=== PATIENT | male | born 1965 | race Caucasian/White ===

== ENCOUNTER → 2017-12-10 07:59 | Outpatient (CLI) | payer MEDICARE, MEDICAID, SELFPAY ==
--- NOTE | 2017-12-10 08:03 | CT_ITS ---
STUDY: CT ABDOMEN WITH CONTRAST REASON FOR EXAM: Male, 52 years old. Esophageal cancer follow-up. Patient had surgery on the esophagus and also had chemotherapy and radiation therapy RADIATION DOSAGE (If Supplied By Facility): CTDIvol = ( 11.71 ) mGy, DLP = ( 602.26 ) mGycm TECHNIQUE: Transaxial images were obtained post I.V. administration of 100 ml of Isovue 300 contrast, and with oral contrast. Sagittal and coronal images were reconstructed. Individualized dose optimization techniques were used for this CT. COMPARISON: CT scan abdomen and pelvis 05/18/2017. CT PET scan 06/04/2017. FINDINGS: There are mild emphysematous changes in the visualized lower lung doherty. There is a calcified pulmonary granuloma in the right lower lobe. The visualized portions of the heart are within normal limits. Normal liver. Normal gallbladder and extrahepatic biliary system. Normal spleen. There is a complex cystic structure within the inferior head of the pancreas, measuring approximately 2.4 x 2.7 x 3.4 cm. There is no significant change in overall size, however, on the previous CT scan, this lesion had a thick solid outer rim and a more well-defined cystic center, worse on current exam, the lesion is more diffusely and heterogeneously cystic. No corresponding glucose avidity was demonstrated on previous PET scan, which somewhat decreases likelihood that this represents a viable neoplasm. Finding may represent a pancreatic pseudocyst. There is redemonstration of a 7 mm cystic lesion in the tail the pancreas appears smaller than on the study. The remainder the pancreas appears mildly atrophic but otherwise normal, with no demonstrated ductal dilatation or surrounding fat infiltration to suggest acute pancreatitis. Normal bilateral adrenal glands. Normal right kidney. Normal left kidney. Assessment of the stomach is limited by nondistention. Normal small intestine. Normal colon. There is non-visualization of the appendix. There is mild atherosclerotic calcification of the abdominal aorta, without a demonstrated aneurysm. Normal inferior vena cava. Normal retroperitoneum. Normal abdominal wall. There are multilevel degenerative changes of the visualized lumbar spine. CT/Abdomen WITH IV Contrast IMPRESSION: Complex cystic lesion arising in the inferior head of the pancreas appears more diffusely and heterogeneously cystic entity on previous study. Given lack of activity on PET scan, this probably represents a pseudocyst. Small cystic lesion in the tail the pancreas is smaller than was on the previous study. No other evidence for masses or metastatic lesions. Atherosclerosis. Electronically Signed: Anderson Lucas MD at 2:14 EDT , Service support ,
--- NOTE | 2017-12-10 08:03 | CT_ITS ---
STUDY: CT CHEST WITH CONTRAST REASON FOR EXAM: Male, 52 years old. Follow-up esophageal cancer. Patient's had esophageal surgery, chemotherapy, and radiation therapy. RADIATION DOSAGE (If Supplied By Facility): CTDIvol = ( 11.71 ) mGy, DLP = ( 602.26 ) mGycm TECHNIQUE: Transaxial imaging was performed following intravenous administration of 100 ml of Isovue 300 contrast material. Individualized dose optimization techniques were used for this CT. COMPARISON: CT PET scan 06/04/2017. CT chest 05/18/2017, 05/20/2016, and 04/18/2016. FINDINGS: There is mild diffuse mural thickening of the distal thoracic esophagus which is not significantly different from the previous studies. There are prominent emphysematous changes in the lungs, greatest in the lung apices. As seen on series 2, axial images 22-24, there is a 9 mm spiculated pulmonary nodule in the right lung apex. This has not increased in size since the 2016 exam and it does not demonstrate glucose avidity on PET scan, which increased likely this is benign finding. There is a calcified granuloma in the right lower lobe. There is no demonstrated pleural abnormality. Normal heart and pericardium. There are multiple small lymph nodes within the mediastinum, which are normal in size and morphology.. Normal hilar regions. Normal enhanced pulmonary arteries. Normal aorta arch and descending thoracic aorta. There are multi-level degenerative changes of the thoracic spine. There is no demonstrated abnormality of the visualized upper abdomen. CT/Chest WITH Contrast IMPRESSION: Emphysematous and fibrotic changes in the lungs. 9 mm right apical lung nodule is stable in size and appearance. Mild mural thickening of the distal thoracic esophagus is stable in appearance. No evidence for acute pathology. No evidence for new masses or lymphadenopathy. Electronically Signed: Anderson Lucas MD at 2:28 EDT , Service support ,
[2017-12-10 08:21] LABS: CREATININE FINGERSTICK 0.8 mg/dL (0.70-1.30); EGFR FINGERSTICK > 60.0000 mL/min (>60)
== END ==
PROVIDERS: Family Provider Family Medicine; PCP Family Medicine; Visit Provider Internal Medicine Medical Oncology
DX: C15.5 Malignant neoplasm of lower third of esophagus (principal)
CPT/HCPCS: 71260; 74160; Q9967

== ENCOUNTER → 2018-09-16 15:03 | Outpatient (CLI) | payer MEDICARE, SELFPAY ==
[2018-09-16 18:18] LABS: Vitamin B12 778 pg/mL (211-911)
[2018-09-16 18:20] LABS: Alcohol, Blood (Medical)-Serum < 3.0 mg/dL
[2018-09-16 18:23] LABS: ALB/GLOB Ratio 0.8 RATIO (0.9-2.4); AST(SGOT) 13 U/L (15-37); Alanine Aminotransfer ALT/SGPT 14 U/L (16-61); Albumin, Serum 3.4 g/dL (3.2-5.0); Alkaline Phosphatase 102 U/L (45-117); Anion Gap 7 (5-15); BUN 6 mg/dL (7-18); BUN/Creat Ratio 8.3 RATIO (10-20); Calcium,Total 8.7 mg/dL (8.5-10.1); Chloride 100 mmol/L (98-107); Creatinine, Serum 0.72 mg/dL (0.70-1.30); EST Glomerular Filtration Rate 120 mL/min (>60); Est Glom Filt Rate - Afr Amer 146 mL/min (>60); Glucose 73 mg/dL (74-106); Iron 64 ug/dL (65-175); Potassium 3.1 mmol/L (3.5-5.1); Prealbumin 16.7 mg/dL (20.0-40.0); Protein, Total 7.4 g/dL (6.4-8.2); Sodium Level 135 mmol/L (136-145); Thyroid Stim Hormone (TSH) 1.52 uIU/mL (0.358-3.74)
[2018-09-18 15:58] LABS: Carbohydrate Ag 19-9 2261 12 U/mL (0-35)
== END ==
PROVIDERS: Family Provider Family Medicine; PCP Family Medicine; Visit Provider Family Medicine
DX: R62.7 Adult failure to thrive (principal); K86.1 Other chronic pancreatitis; R63.4 Abnormal weight loss; F10.20 Alcohol dependence, uncomplicated; E16.2 Hypoglycemia, unspecified; Z51.81 Encounter for therapeutic drug level monitoring; Z85.01 Personal history of malignant neoplasm of esophagus
CPT/HCPCS: 36415; 80053; 80320; 82607; 82746; 83036; 83540; 84134; 84443; 86301; G0480

== ENCOUNTER → 2019-03-13 14:25 | Outpatient (CLI) | payer MEDICARE, SELFPAY ==
--- NOTE | 2019-03-13 14:27 | CT_ITS ---
STUDY: CT ABDOMEN WITH CONTRAST REASON FOR EXAM: Male, 53 years old. Patient has a history of esophageal cancer and pancreatitis. RADIATION DOSAGE (If Supplied By Facility): CTDIvol = ( 16.46 ) mGy, DLP = ( 350.30 ) mGycm TECHNIQUE: Transaxial images were obtained post I.V. administration of IV/Oral Isovue 370 100, and with oral contrast. Sagittal and coronal images were reconstructed. Individualized dose optimization techniques were used for this CT. COMPARISON: Comparison is made with prior study dated December 10, 2017. FINDINGS: Minimal degree of dependent bibasilar atelectasis. The visualized portions of the heart are within normal limits. There is decreased attenuation of the liver consistent with steatosis. Normal gallbladder and extrahepatic biliary system. Normal spleen. There is diffuse atrophy of the body and tail portions of the pancreas. The head of the pancreas is enlarged. This measures 3.5 cm x 3.6 cm cyst. Within it, there is a 1.8 cm x 2.6 cm cyst. Normal bilateral adrenal glands. Normal right kidney. Normal left kidney. There is a small hiatal hernia. Normal small intestine. Normal colon. The appendix is visualized and appears normal. There is diffuse atherosclerotic calcification of the abdominal aorta, without a demonstrated aneurysm. Normal inferior vena cava. Normal retroperitoneum. Distended urinary bladder. Normal abdominal wall. There are diffuse degenerative changes of the visualized lumbar spine. CT/Abdomen WITH IV Contrast IMPRESSION: Enlargement of the head of the pancreas with a 1.8 cm x 2.6 cm cyst within it. The body and tail portions of the pancreas are atrophied. Electronically Signed: Dillon Gillespie, at 12:56 EDT , Service support ,
== END ==
PROVIDERS: Family Provider Family Medicine; PCP Family Medicine; Referring Provider Family Medicine; Visit Provider Family Medicine
DX: R10.9 Unspecified abdominal pain (principal); K86.1 Other chronic pancreatitis; K86.3 Pseudocyst of pancreas; R11.0 Nausea; Z85.01 Personal history of malignant neoplasm of esophagus
CPT/HCPCS: 74160; Q9967